=== PATIENT | female | born 1980 | race African-American/Black ===

== ENCOUNTER 2022-08-13 11:17 | Inpatient (IN) | payer OTHER ==
[2022-08-13 12:02] VITALS: BMI 27.7
[2022-08-13] MEDS ORDERED: ACETAMINOPHEN 325 MG TABLET (FP) PO PRN (14:35)
[2022-08-13] MEDS ORDERED: hydrOXYzine PAMOATE 25 MG CAPSULE (FP) PO PRN (14:35)
[2022-08-13] MEDS ORDERED: P-EPHED 60MG/TRIPROLIDI 2.5MG TABLET PO PRN (14:35)
[2022-08-13] MEDS ORDERED: MAGNESIUM CITRATE 300 ML BOTTLE PO PRN (14:35)
[2022-08-13] MEDS ORDERED: IBUPROFEN 400 MG TABLET (FP) PO PRN (14:35)
[2022-08-13] MEDS ORDERED: MAGNESIUM HYDROX 2400MG/30ML ORAL SUSPENSION 30 ML CUP PO PRN (14:35)
[2022-08-13] MEDS ORDERED: LOPERAMIDE HCL 2 MG CAPSULE PO PRN (14:35)
[2022-08-13] MEDS ORDERED: guaiFENesin 200 MG/10 ML 10 ML UNIT-DOSE CUPS PO PRN (14:35)
[2022-08-13] MEDS ORDERED: MAG HYDROX/AL HYDROX/SIMETH 30 ML UNIT-DOSE CUP PO PRN (14:35)
[2022-08-13] MEDS: PRENATAL VITAMINS W/ FOLIC ACID TABLET (FP) PO SCH (17:42)
[2022-08-13] MEDS: NICOTINE 7 MG/24 HOURS TOPICAL PATCH TD SCH (17:42)
[2022-08-13] MEDS: LISINOPRIL 5 MG TABLET PO SCH (18:29)
[2022-08-13] MEDS ORDERED: METOPROLOL TARTRATE 25 MG TABLET (FP) PO ONE (20:30)
[2022-08-13] MEDS ORDERED: TUBERCULIN PPD 5 TU/0.1ML VIAL ID ONE (21:55)
[2022-08-13] MEDS: THIAMINE HCL 100 MG TABLET (FP) PO SCH (21:57)
[2022-08-13] MEDS: CARVEDILOL 3.125 MG TABLET (FP) PO SCH (21:57)
[2022-08-13] MEDS: MELATONIN 5 MG TABLETS PO SCH (22:00)
[2022-08-14] MEDS: PRENATAL VITAMINS W/ FOLIC ACID TABLET (FP) PO SCH (11:17)
[2022-08-14] MEDS: FUROSEMIDE 40 MG TABLET (FP) PO SCH (11:18)
[2022-08-14] MEDS: NICOTINE 7 MG/24 HOURS TOPICAL PATCH TD SCH (11:18)
[2022-08-14] MEDS: LISINOPRIL 5 MG TABLET PO SCH (11:18)
[2022-08-14] MEDS: CARVEDILOL 3.125 MG TABLET (FP) PO SCH ×2 (11:18→21:19)
[2022-08-14] MEDS ORDERED: cloNIDine HCL 0.1 MG TABLET PO ONE (12:49)
[2022-08-14 17:06] LABS: HEMATOCRIT 33.2 % (32.4-45.2); HEMOGLOBIN 10.6 GM/dL (10.7-15.3); MCH 25.7 pg (25.7-33.7); MCHC 31.9 g/dl (32.0-36.0); MEAN CELL VOLUME 80.7 fl (80-96); MEAN PLT VOLUME 9.3 fl (7.5-11.1); PLATELET COUNT 377 10^3/uL (134-434); RBC 4.11 M/mm3 (3.60-5.2); RDW 18.3 % (11.6-15.6); WHITE BLOOD COUNT 12.5 K/mm3 (4.0-10.0)
[2022-08-14 17:13] LABS: CALCIUM 8.6 mg/dL (8.5-10.1)
[2022-08-14 17:14] LABS: ALBUMIN 2.9 g/dl (3.4-5.0); BLOOD UREA NITROGEN 14.2 mg/dL (7-18)
[2022-08-14 17:18] LABS: CREATININE 0.7 mg/dL (0.55-1.3)
[2022-08-14 17:19] LABS: BILIRUBIN,TOTAL 0.4 mg/dL (0.2-1); TOT PROT 5.9 g/dl (6.4-8.2)
[2022-08-14 17:40] LABS: SYPHILIS W/ RPR CONF NON-REACTIVE (NONREACTIVE)
[2022-08-14] MEDS: MELATONIN 5 MG TABLETS PO SCH (21:20)
[2022-08-14] MEDS: THIAMINE HCL 100 MG TABLET (FP) PO SCH (21:20)
[2022-08-15] MEDS: LISINOPRIL 5 MG TABLET PO SCH ×2 (07:10→10:57)
[2022-08-15] MEDS: NICOTINE 10 MG CARTRIDGE (INHALER) IH PRN (08:06)
[2022-08-15] MEDS: PRENATAL VITAMINS W/ FOLIC ACID TABLET (FP) PO SCH (10:57)
[2022-08-15] MEDS: FUROSEMIDE 40 MG TABLET (FP) PO SCH (10:57)
[2022-08-15] MEDS: CARVEDILOL 3.125 MG TABLET (FP) PO SCH ×2 (10:57→22:12)
[2022-08-15] MEDS: NICOTINE 7 MG/24 HOURS TOPICAL PATCH TD SCH (10:57)
[2022-08-15] MEDS: MELATONIN 5 MG TABLETS PO SCH (22:12)
[2022-08-15] MEDS: THIAMINE HCL 100 MG TABLET (FP) PO SCH (22:12)
[2022-08-16] MEDS: LISINOPRIL 5 MG TABLET PO SCH ×2 (07:00→10:34)
[2022-08-16] MEDS: NICOTINE 10 MG CARTRIDGE (INHALER) IH PRN ×2 (07:10→10:37)
[2022-08-16] MEDS: COLLOIDAL OATMEAL 1 BAR EACH TP PRN (07:11)
[2022-08-16] MEDS: FUROSEMIDE 40 MG TABLET (FP) PO SCH (10:33)
[2022-08-16] MEDS: PRENATAL VITAMINS W/ FOLIC ACID TABLET (FP) PO SCH (10:33)
[2022-08-16] MEDS: NICOTINE 7 MG/24 HOURS TOPICAL PATCH TD SCH (10:34)
[2022-08-16] MEDS: CARVEDILOL 3.125 MG TABLET (FP) PO SCH ×2 (10:35→22:23)
[2022-08-16] MEDS: LACTULOSE 20 GM/30 ML UDC (FOR ORAL USE ONLY) PO PRN (14:29)
[2022-08-16] MEDS: METHOCARBAMOL 500 MG TABLET PO PRN ×2 (14:51→22:24)
[2022-08-16] MEDS: MELATONIN 5 MG TABLETS PO SCH (22:23)
[2022-08-16] MEDS: THIAMINE HCL 100 MG TABLET (FP) PO SCH (22:23)
[2022-08-17 07:33] VITALS: RESP 16; TEMP 97.8
[2022-08-17 08:58] VITALS: BP 167/88; PULSE 77
[2022-08-17] MEDS: PRENATAL VITAMINS W/ FOLIC ACID TABLET (FP) PO SCH (10:54)
[2022-08-17] MEDS: CARVEDILOL 3.125 MG TABLET (FP) PO SCH (10:54)
[2022-08-17] MEDS: FUROSEMIDE 40 MG TABLET (FP) PO SCH (10:54)
[2022-08-17] MEDS: LISINOPRIL 5 MG TABLET PO SCH (10:54)
[2022-08-17] MEDS: NICOTINE 7 MG/24 HOURS TOPICAL PATCH TD SCH (10:54)
[2022-08-17] MEDS: METHOCARBAMOL 500 MG TABLET PO PRN (10:56)
[2022-08-17] MEDS: NICOTINE 10 MG CARTRIDGE (INHALER) IH PRN (10:58)
[2022-08-17] MEDS: LACTULOSE 20 GM/30 ML UDC (FOR ORAL USE ONLY) PO PRN (10:59)
[2022-08-17] MEDS: COLLOIDAL OATMEAL 1 BAR EACH TP PRN (11:01)
[2022-08-17] MEDS ORDERED: LACTULOSE 20 GM/30 ML UDC (FOR ORAL USE ONLY) PO SCH (14:00)
[2022-08-17 14:52] LABS: URINE APPEARANCE CLOUDY; URINE BILIRUBIN NEGATIVE (NEGATIVE); URINE COLOR YELLOW; URINE GLUCOSE (UA) NEGATIVE (NEGATIVE); URINE KETONE NEGATIVE (NEGATIVE); URINE LEUK ESTERASE NEGATIVE (NEGATIVE); URINE NITRITE NEGATIVE (NEGATIVE); URINE PROTEIN TRACE (NEGATIVE)
== END 2022-08-17 15:30 | disposition left against medical advice (07) | DRG 770 ==
LOC: YASAS 11:17 → Y5N 15:52
PROVIDERS: ADMIT Allergy & Immunology; ATTEND Psychiatry & Neurology Pain Medicine
PROC: HZ42ZZZ Group Counseling for Substance Abuse Treatment, Cognitive-Behavioral (ICD-10-PCS; principal; 2022-08-13)
DX: F10.20 Alcohol dependence, uncomplicated (principal); F14.20 Cocaine dependence, uncomplicated; F17.210 Nicotine dependence, cigarettes, uncomplicated; I25.10 Atherosclerotic heart disease of native coronary artery without angina pectoris; I10 Essential (primary) hypertension; H57.89 Other specified disorders of eye and adnexa; R79.89 Other specified abnormal findings of blood chemistry; Z28.310 Unvaccinated for COVID-19; Z28.9 Immunization not carried out for unspecified reason
CPT/HCPCS: 36415; 80053; 81003; 81025; 82140; 85027; 86780; 86803; 93005; 93010; C9803-CS; U0003; U0005